=== PATIENT | male | born 2000 | race Caucasian/White ===

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

== ENCOUNTER 2021-04-22 22:04 | Emergency (ER) | payer OTHER ==
[~2021-04-22] VITALS: Ht 182.9 cm; Wt 81.8 kg
[2021-04-23] MEDS ORDERED: BACITRACIN OINTMENT 30GM TUBE TOP ONE (00:20)
[2021-04-23] MEDS ORDERED: LIDOCAINE 2% MDV 20ML VIAL SC ONE (00:20)
[2021-04-23] MEDS ORDERED: BOOSTRIX/ADACEL VACCINE (DIPHTH/PERTUSS/ACELL/TETANUS) 0.5ML SYR IM ONE (00:30)
[2021-04-23 01:33] VITALS: BP 138/70
== END 2021-04-23 01:41 | disposition home or self-care (01) ==
LOC: M ED 22:04
DX: S61.210A Laceration without foreign body of right index finger without damage to nail, initial encounter (principal); W23.0XXA Caught, crushed, jammed, or pinched between moving objects, initial encounter; Y92.89 Other specified places as the place of occurrence of the external cause; Z77.098 Contact with and (suspected) exposure to other hazardous, chiefly nonmedicinal, chemicals; F12.20 Cannabis dependence, uncomplicated

== ENCOUNTER 2024-11-22 02:26 | Emergency (ER) | payer OTHER, SELFPAY ==
[~2024-11-22] VITALS: Ht 182.9 cm; Wt 76.0 kg
[2024-11-22] MEDS: ACETAMINOPHEN *IV* 1,000 MG in IV 1 EA IV ONE (03:16)
[2024-11-22] MEDS: MORPHINE 4 MG/ML 1 ML VIAL IV ONE ×2 (03:18→06:59)
[2024-11-22] MEDS ORDERED: OXYC10TA12 PO (07:19)
[2024-11-22 07:30] VITALS: BP 121/77; TEMP 97.1; O2SAT 97
== END 2024-11-22 07:55 | disposition home or self-care (01) ==
LOC: M ED 02:26
DX: S82.431A Displaced oblique fracture of shaft of right fibula, initial encounter for closed fracture (principal); R22.41 Localized swelling, mass and lump, right lower limb; Y92.019 Unspecified place in single-family (private) house as the place of occurrence of the external cause; Y93.9 Activity, unspecified; Y99.9 Unspecified external cause status; W14.XXXA Fall from tree, initial encounter; F10.10 Alcohol abuse, uncomplicated; Z79.899 Other long term (current) drug therapy
CPT/HCPCS: 73590; 73610; 96374; 96375; 96376; 99284; J0131

== ENCOUNTER 2024-11-28 11:54 | Day surgery (SDC) | payer SELFPAY ==
[~2024-11-28] VITALS: Ht 182.9 cm; Wt 74.8 kg
[~2024-11-28 11:54] MED LIST: OXYC10TA12 PO
[2024-11-28] MEDS ORDERED: ceFAZolin SOD 2 GM IV ONCE IV ONE (13:00)
[2024-11-28] MEDS ORDERED: ONDANSETRON 4MG 2ML VIAL As Ordered ONE (13:29)
[2024-11-28] MEDS ORDERED: LIDOCAINE 2% 100 MG/5 ML SDV (FOR ANES.) As Ordered ONE (13:29)
[2024-11-28] MEDS ORDERED: KETOROLAC 30 MG/ML 1 ML VIAL As Ordered ONE (13:29)
[2024-11-28] MEDS ORDERED: dexAMETHasone 4 MG/ML 1 ML VIAL As Ordered ONE (13:29)
[2024-11-28] MEDS ORDERED: dexAMETHasone 10 MG/1 ML VIAL PRES.FREE PN ONE (13:30)
[2024-11-28] MEDS ORDERED: MIDAZOLAM INJ 2 MG/2 ML VIAL As Ordered ONE (13:33)
[2024-11-28] MEDS ORDERED: LR 1,000 ML IV SCH (13:35)
[2024-11-28] MEDS: MIDAZOLAM INJ 2 MG/2 ML VIAL IV PRN (13:52)
[2024-11-28] MEDS: LIDOCAINE 1% SDV 5 ML VIAL PN ONE (13:56)
[2024-11-28] MEDS: ROPIvacaine 0.5% 30ML VIAL PN ONE (13:56)
[2024-11-28] MEDS ORDERED: ACETAMINOPHEN 1000MG/100ML IV BAG As Ordered ONE (14:21)
[2024-11-28] MEDS ORDERED: ONDANSETRON 4MG 2ML VIAL IV PRN (15:25)
[2024-11-28] MEDS ORDERED: HYDROMORPHONE HCL 0.5 MG/0.5 ML SYRINGE IV PRN (15:25)
[2024-11-28] MEDS ORDERED: OXYC10TA12 PO (15:47)
[2024-11-28 17:00] VITALS: BP 126/77; TEMP 98; O2SAT 100
== END 2024-11-28 17:02 | disposition home or self-care (01) ==
LOC: M SDC 11:54
PROVIDERS: ATTEND Orthopaedic Surgery
DX: S82.851A Displaced trimalleolar fracture of right lower leg, initial encounter for closed fracture (principal); W14.XXXA Fall from tree, initial encounter; Y93.9 Activity, unspecified; Y92.9 Unspecified place or not applicable; F17.210 Nicotine dependence, cigarettes, uncomplicated; F17.220 Nicotine dependence, chewing tobacco, uncomplicated
CPT/HCPCS: 27822; 76000; C1713; J0131; J1100; J1885; J2250; J2405; J3010

== ENCOUNTER → 2024-12-11 | Outpatient (CLI) | payer SELFPAY | LOC: M SOG 07:30 | PROVIDERS: ATTEND Physician Assistant | DX: S82.851A Displaced trimalleolar fracture of right lower leg, initial encounter for closed fracture (principal); W18.30XA Fall on same level, unspecified, initial encounter; Y92.009 Unspecified place in unspecified non-institutional (private) residence as the place of occurrence of the external cause ==

== ENCOUNTER → 2025-01-08 | Outpatient (CLI) | payer SELFPAY | LOC: M SOG 07:35 | PROVIDERS: ATTEND Physician Assistant | DX: S82.851D Displaced trimalleolar fracture of right lower leg, subsequent encounter for closed fracture with routine healing (principal) ==